=== PATIENT | male | born 1985 | race African-American/Black ===

== ENCOUNTER 2017-03-26 17:35 | Emergency (ER) | payer MEDICAID ==
[~2017-03-26] VITALS: Ht 190.5 cm; Wt 127.0 kg
[2017-03-26 17:51] VITALS: BP 132/78
[2017-03-26] MEDS ORDERED: IPRATROPIUM NEB FS 0.5 MG/2.5 ML AMPUL.NEB NEB ONE (18:00)
[2017-03-26] MEDS ORDERED: DEXAMETHASONE SOD PHOSPHATE 10 MG/ML VIAL MC ONE (18:00)
[2017-03-26] MEDS ORDERED: ALBUTEROL FS 2.5 MG/3 ML VIAL.NEB CONTNEB ONE (18:00)
[2017-03-26] MEDS ORDERED: ALBUTEROL FS 2.5 MG/3 ML VIAL.NEB ONE (18:13)
[2017-03-26] MEDS ORDERED: IPRATROPIUM NEB FS 0.5 MG/2.5 ML AMPUL.NEB ONE (18:13)
[2017-03-26] MEDS ORDERED: DEXAMETHASONE SOD PHOSPHATE 10 MG/ML VIAL ONE (18:23)
== END 2017-03-26 20:42 | disposition home or self-care (01) ==
LOC: ER 17:36
DX: J45.901 Unspecified asthma with (acute) exacerbation (principal); Z59.0 Homelessness
CPT/HCPCS: A4606; J1100; Z7610